=== PATIENT | male | born 1930 | race Caucasian/White ===

== ENCOUNTER 2017-05-14 18:12 | Emergency (ER) | payer MEDICARE ==
[~2017-05-14] VITALS: Ht 170.2 cm; Wt 75.0 kg
[~2017-05-14 18:12] MED LIST: AMOXICILLIN500 MG PO; ASPIRIN LOW DOS81 M2 PO; BENADRY2 EX; HYZAAR1 TA1 PO; METFORMIN850 MG PO
[2017-05-14] MEDS ORDERED: PRILOSEC OTC20 MG PO (18:43)
[2017-05-14] MEDS ORDERED: LOSARTAN/HCT1 TA2 PO (18:45)
[2017-05-14] MEDS ORDERED: AMLODIPINE5 MG PO (18:47)
[2017-05-14] MEDS ORDERED: GLIPIZIDE5 MG PO (18:48)
[2017-05-14] MEDS ORDERED: PRAVASTATIN SOD20 MG PO (18:48)
[2017-05-14 20:58] VITALS: BP 131/70
== END 2017-05-14 21:00 | disposition home or self-care (01) ==
LOC: ED 18:12
DX: I10 Essential (primary) hypertension (principal); E11.9 Type 2 diabetes mellitus without complications; Z85.820 Personal history of malignant melanoma of skin

== ENCOUNTER 2017-12-24 05:16 | Inpatient (IN) | payer MEDICARE ==
[~2017-12-24] VITALS: Ht 167.6 cm; Wt 74.4 kg
[~2017-12-24 05:16] MED LIST changes: +AMLODIPINE5 MG PO; +GLIPIZIDE5 MG PO; +LOSARTAN/HCT1 TA2 PO; +PRAVASTATIN SOD20 MG PO; +PRILOSEC OTC20 MG PO
--- NOTE | 2017-12-24 05:24 | NUR ---
BY W/C TO ROOM
--- NOTE | 2017-12-24 05:40 | NUR ---
PT IS ALERT/ORIENTED TO PERSON/TIME/PLACE. STEPHANY/GRASP EQUAL AND STRONG. STEVENS. RESP EASY REG. LUNGS CLEAR. HEART SOUNDS NORMAL. NO EDEMA. ABD SOFT/NON-TENDER. ONLY C/O SOME MILD DIZZINESS.
[2017-12-24] MEDS ORDERED: CO Q10200 MG PO (05:41)
[2017-12-24] MEDS ORDERED: METFORMIN500 M2 PO (05:42)
--- NOTE | 2017-12-24 06:05 | NUR ---
TO CT VIA STRETCHER
[2017-12-24 06:06] LABS: HEMATOCRIT 46.7 % (39.0-50.0); HEMOGLOBIN 15.2 g/dl (14.0-18.0); IMMATURE GRANULOCYTES 1.4 % (0.0-5.0); MEAN CORPUSCULAR HGB 28.8 pG CALC (26.0-32.0); MEAN CORPUSCULAR HGB CONC 32.5 g/L CALC (32.0-36.0); NEUT# 5.87 thou/uL (1.82-7.42); RED BLOOD COUNT 5.27 mill/uL (4.70-6.10); RED CELL DISTRI WIDTH 13.8 % (11.5-15.5)
[2017-12-24 06:08] LABS: MEAN CELL VOLUME 88.6 fL CALC (80.0-100.0)
[2017-12-24 06:12] LABS: ALKALINE PHOSPHATASE 56 u/l (38-126); ANION GAP 16 (6-22 (CALC)); BILIRUBIN, TOTAL 0.4 mg/dL (0.0-1.4); BUN 30 mg/dL (8-23); BUN/CREATININE RATIO 25 (12-20 (CALC)); CARBON DIOXIDE 28 mmol/l (22-30); CHLORIDE 99 mmol/l (95-108); CREATININE 1.2 mg/dL (0.7-1.3); GFR 58 ML/MIN (>=60 (CALC)); GFR FOR AFR.AMER. > 60 ML/MIN (>=60 (CALC)); POTASSIUM 4.6 mmol/l (3.5-5.1); SGOT/AST 19 u/l (19-48); SODIUM 138 mmol/l (137-146); TOTAL PROTEIN 6.8 g/dL (6.3-8.2)
[2017-12-24 06:15] LABS: ACT PARTIAL THROMBO TIME 27.3 SECONDS (20.0-32.5); PROTHROMBIN TIME 10.7 SECONDS (9.0-12.5)
[2017-12-24 06:39] LABS: MYOGLOBIN 41 ng/mL (0 - 121)
--- NOTE | 2017-12-24 06:56 | NUR ---
PT SUPINE ON STRETCHER. BP 179/78 HR 61. IV SITE HEALTHY. PT REPORTS FEELING IMPROVED. CALL LIGHT WITHIN REACH.
--- NOTE | 2017-12-24 08:06 | NUR ---
BP 120/61 HR 54 PT VOICES THAT IS WHAT VS ARE NORMALLY. NO C/O. ADVISED PT OF CONTINUED WAIT TIME. PT AWARE OF CURRENT POC. DENIES PAIN/DISCOMFORT. IV HEALTHY.
--- NOTE | 2017-12-24 08:18 | NUR ---
REPORT CALLED TO MEÑO, NURSE ON [facility]. ADVISED OF HX, ATTACHMENTS, AND RECENT EVENTS. PT IN STABLE CONDITION ON TELEMETRY.
--- NOTE | 2017-12-24 08:24 | NUR ---
PT TO [facility] VIA STRETCHER IN NO APPARENT DISTRESS. VSS. IV SITE HEALTHY.
--- NOTE | 2017-12-24 08:28 | NUR ---
PT ARRIVED TO FLOOR VIA STRETCHER ACCOMPANIED BY ER STAFF MEMBER IN STABLE CONDITION;PT AMBULATED TO STANDING SCALE AND BEDSIDE WITH A STEADY GAIT.WT AND VS OBTAINED,CURRENT BP 154/82 HR 52;PT A&O X3;PT ORIENTED TO ROOM AND CALL LIGHT SYSTEM;PT REPORTS DIZZINESS AND COTTON MOUTH SINCE YESTERDAY 12/23/17;NO PAIN NOTED,PAIN SCALE AND REPORTING EDUCATED;ASSESSMENT COMPLETED;RESPIRATIONS EVEN AND UNLABORED ON RA,CLEAR LUNG SOUNDS;ABDOMEN SOFT ON PALPATION AND ACTIVE IN ALL 4 QUADRANTS,LAST BM 12/24/17;STRONG PEDAL PULSES;#20G TO LAC FLUSHED AND PATENT,SITE APPEARS HEALTHY;TELE MONITOR IN PLACE AND SKIN INTACT; URINAL PROVIDED AND PT EDUCATED THAT WE NEED A URINE SAMPLE,VERBALIZES UNDERSTANDING;PO FLUIDS PROVIDED AND ENCOURAGED;PT DENIES ANY ADDITIONAL NEEDS AT THIS TIME;ALL SAFETY PRECAUTIONS REINFORCED AND PT EDUCATED TO CALL FOR ASSISTANCE IF NEEDED;FALL PRECAUTIONS IN PLACE WITH BED IN THE LOWEST POSITION;CALL LIGHT IN REACH;WILL CONTINUE TO MONITOR
[2017-12-24 08:55] VITALS: BP 154/82
[2017-12-24 09:08] LABS: CHOLESTEROL HDL RATIO 5.2 (<4.4 (CALC)); MAGNESIUM 1.7 mg/dL (1.6-2.3)
[2017-12-24 09:20] VITALS: BP 171/79
--- NOTE | 2017-12-24 09:35 | NUR ---
CRISTIAN ERNANDEZ,ANRP MADE AWARE OF PT LOWER HEART RATE 53.BP 171/79;ORDER TO CONTINUE ADMINISTRATION OF LOSARTAN 100MG AND NORVASC 5MG PO RECEIVED.
--- NOTE | 2017-12-24 11:00 | NUR ---
PT RESTING IN SEMI FOWLERS POSITION;PT DENIES ANY CURRENT PAIN OR DISCOMFORTS;RESPIRATIONS REMAIN EVEN AND UNLABORED ON RA;CURRENT ACCUCHECK 302, PT COVERED WITH NOVOLOG SLIDING SCALE PER ORDER;TELE MONITOR REMAINS IN PLACE;PO FLUIDS RE-ENCOURAGED;PT DENIES ANY ADDITIONAL NEEDS AT THIS TIME;FALL PRECAUTIONS IN PLACE WITH CALL LIGHT IN REACH;WILL CONTINUE TO MONITOR
[2017-12-24 11:15] VITALS: BP 164/67
[2017-12-24 14:35] LABS: URINE BILIRUBIN - DIPSTICK NEGATIVE (NEGATIVE); URINE BLOOD DIPSTICK NEGATIVE (NEGATIVE); URINE COLOR YELLOW; URINE GLUCOSE - DIPSTICK >=1000 mg/dL (NEGATIVE); URINE KETONE NEGATIVE (NEGATIVE); URINE LEUK ESTERASE NEGATIVE (NEGATIVE); URINE NITRITE - DIPSTICK NEGATIVE (Negative); URINE PROTEIN - DIPSTICK NEGATIVE (NEG-TRACE); URINE SPECIFIC GRAVITY >=1.030; URINE UROBILINOGEN - DIPSTICK 0.2 E.U./dL (0.2)
[2017-12-24 14:50] LABS: URINE CLARITY CLEAR
[2017-12-24 15:10] VITALS: BP 172/82
--- NOTE | 2017-12-24 16:08 | NUR ---
PT RESTING IN SEMI FOWLERS POSITION;RESPIRATIONS EVEN AND UNLABORED ON RA;PT DENIES ANY CURRENT PAIN OR DISCOMFORTS;BP 172/82 HR 58, PT MEDICATED WITH PRN APRESOLINE 10MG IVP BY ROULA BERMUDEZ;TELE MONITOR IN PLACE;IV SITE REMAINS PATENT TO LAC;PO FLUIDS REINFORCED;PT ENCOURAGED TO CALL FOR ASSISTANCE IF NEEDED;FALL PRECAUTIONS REMAIN IN PLACE WITH CALL LIGHT IN REACH;WILL CONTINUE TO MONITOR
[2017-12-24 16:45] VITALS: BP 178/80
--- NOTE | 2017-12-24 16:46 | NUR ---
BLOOD PRESSURE RE-CHECK 178/80 HR 63, PT ASYMPTOMATIC;CRISTIAN ERNANDEZ,ANRP MADE AWARE AND NEW ORDERS RECEIVED;WILL CONTINUE TO MONITOR
--- NOTE | 2017-12-24 17:08 | NUR ---
PT MEDICATED WITH CATAPRES 0.2MG PO FOR BP OF 178/80 HR 63.ACCUCHECK 178,PT COVERED WITH NOVOLOG SLIDING SCALE PRE ORDER;WILL MONITOR FOR EFFECTIVENESS
[2017-12-24 18:20] VITALS: BP 129/70
--- NOTE | 2017-12-24 18:20 | NUR ---
BLOOD PRESSURE RE-CHECK 129/70 HR 59
[2017-12-25] VITALS (7 sets, daily range): BP systolic 119–159; BP diastolic 69–75
[2017-12-25 05:46] LABS: ANION GAP 17 (6-22 (CALC)); BUN 22 mg/dL (8-23); BUN/CREATININE RATIO 21 (12-20 (CALC)); CARBON DIOXIDE 27 mmol/l (22-30); CHLORIDE 91 mmol/l (95-108); GFR > 60 ML/MIN (>=60 (CALC)); GFR FOR AFR.AMER. > 60 ML/MIN (>=60 (CALC)); MAGNESIUM 1.7 mg/dL (1.6-2.3); POTASSIUM 4.3 mmol/l (3.5-5.1)
[2017-12-25 05:47] LABS: SODIUM 131 mmol/l (137-146)
--- NOTE | 2017-12-25 07:05 | NUR ---
PT REPORT RECIEVED FROM ROULA NEVILLE. PT SLEEPING IN BED. NO S/S OF DISTRESS NOTED. CALL LIGHT IN REACH. WILL CONTINUE TO MONITOR
--- NOTE | 2017-12-25 07:58 | NUR ---
PT ASSESSMENT COMPLETE. PT A/O X3. SPEECH IS CLEAR. PT STATES HE HAD A HEADACHE EARLIER BUT IT HAS GONE AWAY. PT ALSO STATES THAT HE HAS VERY MINIMAL DIZZINESS. INSTRUCTED PT TO CALL FOR ASSISTANCE BEFORE GETTING OUT OF BED. PT STATES UNDERSTANDING. RESP EVEN AND UNLABORED. LUNG SOUNDS CLEAR. TELE IN PLACE. ABDOMEN ROUND,SOFT. BOWEL SOUNDS ACTIVE X4. STRONG RADIAL PULSES. #20 LAC SL. FUSHED AND PATENT. SITE APPEARS HEALTHY. WEAK PEDAL PULSES. SKIN INTACT. PT DENIES AND PAIN OR NEEDS AT THIS TIME. SAFETY PRECAUTIONS IN PLACE. CALL LIGHT IN REACH. WILL CONTINUE TO MONITOR.
--- NOTE | 2017-12-25 11:06 | NUR ---
DR. SARMIENTO AND AMMY FOSTER IN TO SEE PT
--- NOTE | 2017-12-25 12:25 | NUR ---
PT SITTING UPRIGHT IN BED EATING LUNCH. DENIES ANY PAIN OR NEEDS AT THIS TIME. CALL LIGHT IN REACH. WILL CONTINUE TO MONITOR.
--- NOTE | 2017-12-25 13:00 | NUR ---
PT TRANSFERRED TO [facility]TR[facility] IN STABLE CONDITION VIA WHEELCHAIR ACCOMPANIED BY VOLUNTEER IN STABLE CONDITION
--- NOTE | 2017-12-25 13:30 | NUR ---
PT TRANSPORTED BACK TO [facility] ACCOMPIANED BY VOLUNTEER.
--- NOTE | 2017-12-25 16:00 | NUR ---
PT SITTING UP IN BED WATCHING TELEVISION. DENIES ANY PAIN OR NEEDS AT THIS TIME. TELE IN PLACE. CALL LIGHT IN REACH. WILL CONTINUE TO MONITOR.
--- NOTE | 2017-12-25 20:35 | NUR ---
PATIENT A/O X3. ABLE TO MAKE NEEDS KNOWN. NO ACUTE DISTRESS NOTED. DENIES ANY PAIN OR DISCOMFORT AT THIS TIME. PATIENT LYING IN BED AWAKE WITH CALL LIGHT WITHIN REACH. BED IN LOWEST POSITION.
[2017-12-26] VITALS (8 sets, daily range): BP systolic 90–138; BP diastolic 57–93
--- NOTE | 2017-12-26 00:40 | NUR ---
PATIENT SLEEPING IN BED. NO ACUTE DISTRESS NOTED. CALL LIGHT WITHIN REACH BED IN LOWEST POSITION.
--- NOTE | 2017-12-26 04:15 | NUR ---
patient resting in bed ith eyes closed. no distress noted. call light within reach. be in lowest position.
[2017-12-26 05:23] LABS: ANION GAP 16 (6-22 (CALC)); BUN 26 mg/dL (8-23); BUN/CREATININE RATIO 24 (12-20 (CALC)); CARBON DIOXIDE 28 mmol/l (22-30); CHLORIDE 95 mmol/l (95-108); CREATININE 1.1 mg/dL (0.7-1.3); GFR > 60 ML/MIN (>=60 (CALC)); GFR FOR AFR.AMER. > 60 ML/MIN (>=60 (CALC)); POTASSIUM 4.3 mmol/l (3.5-5.1); SODIUM 135 mmol/l (137-146)
--- NOTE | 2017-12-26 07:15 | NUR ---
REPORT RECEIVED FROM JAMIN CALLESRN;PT RESTING AT BEDSIDE;PT DENIES ANY CURRENT PAIN OR NEEDS;RESPIRATIONS APPEAR EVEN AND UNLABORED ON RA;ALL SAFETY PRECAUTIONS REINFORCED AND POC DISCUSSED;PT RE-EDUCATED ON NPO DIET STATUS AND VERBALIZES UNDERSTANDING;FALL PRECAUTIONS IN PLACE WITH CALL LIGHT IN REACH;WILL CONTINUE TO MONITOR
--- NOTE | 2017-12-26 08:10 | NUR ---
PT OOB RESTING IN RECLINER;VS OBTAINED AND ASSESSMENT COMPLETED;PT DENIES ANY CURRENT PAIN OR DISCOMFORTS BUT DOES REPORT DIZZINESS AT TIMES;CURRENT BP 90/57 HR 82;TELE MONITOR IN PLACE;#20G TO LAC FLUSHED AND PATENT,SITE APPEARS HEALTHY;ACCUCHECK 192, SLIDING SCALE NOVOLOG PROVIDED PER ORDER;PT RE-EDUCATED ON NPO DIET STAUS AND VERBALIZES UNDERSTANDING;PT ENCOURAGED TO CALL FOR ASSISTANCE IF NEEDED;FALL PRECAUTIONS IN PLACE WITH CALL LIGHT IN REACH;WILL CONTINUE TO MONITOR
--- NOTE | 2017-12-26 10:10 | NUR ---
PT ARRIVED BACK TO FLOOR VIA WHEELCHAIR IN STABLE CONDITION.
--- NOTE | 2017-12-26 11:35 | NUR ---
PT RESTING IN BED;RESPIRATIONS EVEN AND UNLABORED ON RA;PT DENIES ANY CURRENT PAIN OR DISCOMFORTS;ORTHOSTATIC VS OBTAINED. LAYING 126/78 HR 74. SITTING 128/80 HR 78 AND STANDING 131/71 HR 97;PT STILL REPORTS DIZZINESS;TELE MONITOR IN PLACE;ACCUCHECK WAS 250 AND PT WAS COVERED ORDERED;PT DENIES ANY ADDITIONAL NEEDS AND IS INSTUCTED TO CALL FOR ASSISTANCE IF NEEDED;CALL LIGHT IN REACH;WILL CONTINUE TO MONITOR
--- NOTE | 2017-12-26 17:20 | NUR ---
PT OOB RESTING IN RECLINER;RESPIRATIONS EVEN AND UNLABORED ON RA;PT DENIES ANY CURRENT PAIN OR NEEDS;ACCUCHECK 131 AT THIS TIME; BP 138/93 HR 71;TELE MONITOR IN PLACE;ASSESSMENT UNCHANGED AT THIS TIME;INSTRUCTED PT TO CALL FOR ASSISTANCE IF NEEDED;FALL PRECAUTIONS IN PLACE WITH CALL LIGHT IN REACH;WILL CONTINUE TO MONITOR
--- NOTE | 2017-12-26 19:30 | NUR ---
PATIENT RESTING IN BED POSITIONED ON HER SIDE WITH EYES CLOSED. RESP ARE EVEN AND UNLABORED. TELE MONITOR IN PLACE. CALL LIGHT IN REACH. WILL CONT TO MONITOR. CALL LIGHT IN REACH. WILL CONT TO MONITOR.
--- NOTE | 2017-12-26 21:19 | NUR ---
PATIENT AWAKE ALERT AND ORIENTEDX3. NO COMPLAINTS AT THIS TIME. [id number] WITH 2UNITS OF NOVALOG SQ. HS SNACK PROVIDED. VOIDING QS YELLOW URINE. STATES THAT HE HAD BM TODAY. TELE MONITOR IN PLACE. REINFORCED SAFETY PRECAUTIONS. CALL LIGHT IN REACH. WILL CONT TO MONITOR.
[2017-12-27] VITALS: BP 133/69
--- NOTE | 2017-12-27 01:00 | NUR ---
APPEARS SLEEPING POSITIONED ON RIGHT SIDE WITH EYES CLOSED. RESP ARE EVEN AND UNLABORED. CALL LIGHT IN REACH. WILL CONT TO MONITOR.
[2017-12-27 04:00] VITALS: BP 131/70
--- NOTE | 2017-12-27 05:21 | NUR ---
APPEARS SLEEPING AT THIS TIME WITH EYES CLOSED. RESP ARE EVEN AND UNLABORED. CALL LIGHT IN REACH. WILL CONT TO MONITOR.
[2017-12-27 05:41] LABS: HEMATOCRIT 50.5 % (39.0-50.0); HEMOGLOBIN 16.9 g/dl (14.0-18.0); IMMATURE GRANULOCYTES 0.3 % (0.0-5.0); MEAN CELL VOLUME 86.9 fL CALC (80.0-100.0); MEAN CORPUSCULAR HGB 29.1 pG CALC (26.0-32.0); MEAN CORPUSCULAR HGB CONC 33.5 g/L CALC (32.0-36.0); NEUT# 7.27 thou/uL (1.82-7.42); RED BLOOD COUNT 5.81 mill/uL (4.70-6.10); RED CELL DISTRI WIDTH 14.1 % (11.5-15.5)
[2017-12-27 05:57] LABS: BILIRUBIN, TOTAL 0.7 mg/dL (0.0-1.4); CREATININE 1.4 mg/dL (0.7-1.3); POTASSIUM 4.8 mmol/l (3.5-5.1); TOTAL PROTEIN 6.6 g/dL (6.3-8.2)
--- NOTE | 2017-12-27 07:15 | NUR ---
REPORT RECEIVED FROM ROULA ORTEGA;PT RESTING IN HIGH FOWLERS POSITION TALKING ON THE PHONE;INTRODUCED SELF TO PT AND POC DISCUSSED;PT DENIES ANY CURRENT PAIN OR DISCOMFORTS;RESPIRATIONS EVEN AND UNLABORED ON RA;TELE MONITOR IN PLACE;PT INSTRUCTED TO CALL FOR ASSISTANCE IF NEEDED;FALL PRECAUTIONS NOTED WITH BED IN THE LOWEST POSITION AND CALL LIGHT IN REACH;WILL CONTINUE TO MONITOR
--- NOTE | 2017-12-27 08:00 | NUR ---
PT OOB RESTING IN RECLINER TALKING ON THE PHONE;VS OBTAINED AND ASSESSMENT COMPLETED;PT A&O X3;PT DENIES ANY CURRENT PAIN OR DISCOMFORTS;RESPIRATIONS EVEN AND UNLABORED ON RA,CLEAR LUNG SOUNDS NOTED;ABDOMEN SOFT ON PALPATION AND ACTIVE IN ALL 4 QUADRANTS;SKIN INTACT;CURRENT BP 113/56 HR 94;ACCUCHECK 206,PT COVERED WITH 2 UNITS OF NOVOLOG PER ORDER;ENCOURAGED INCREASED INTAKE OF ORAL FLUIDS AND PT VERBALIZES UNDERSTANDING;#20G TO LAC FLUSHED AND PATENT,SITE REMAINS HEALTHY;TELE MONITOR IN PLACE;PT DENIES ANY ADDITIONAL NEEDS AT THIS TIME AND IS ENCOURAGED TO CALL FOR ASSISTANCE IF NEEDED;FALL PRECAUTIONS IN PLACE;WILL CONTINUE TO MONITOR
[2017-12-27 08:03] VITALS: BP 113/56
[2017-12-27 10:50] VITALS: BP 131/79
--- NOTE | 2017-12-27 11:30 | NUR ---
PT OOB RESTING IN RECLINER;ALERT AND ORIENTED X3;RESPIRATIONS EVEN AND UNLABORED ON RA;PT DENIES ANY CURRENT PAIN OR NEEDS;ACCUCHECK 250 AND PT COVERED WITH 2UNITS OF SLIDING SCALE NOVOLOG;TELE MONITOR IN PLACE;PT ENCOURAGED TO CALL FOR ASSISTANCE IF NEEDED;CALL LIGHT IN REACH;WILL CONTINUE TO MONITOR
--- NOTE | 2017-12-27 12:40 | NUR ---
AT BEDSIDE DISCUSSING POC AND DISCHARGE PLAN
[2017-12-27 14:23] VITALS: BP 138/76
[2017-12-27] MEDS ORDERED: PRAVASTATIN SOD20 MG PO (15:16)
[2017-12-27] MEDS ORDERED: GLIPIZIDE5 MG PO (15:16)
[2017-12-27] MEDS ORDERED: APRESOLINE25 MG/TAB PO (15:17)
[2017-12-27] MEDS ORDERED: AMLODIPINE BESYL5 MG PO (15:17)
[2017-12-27] MEDS ORDERED: LOSARTAN POT50 MG PO (15:18)
[2017-12-27] MEDS ORDERED: ADLT ASA LOW81 MG PO (15:18)
[2017-12-27 16:08] VITALS: BP 123/77
--- NOTE | 2017-12-27 17:30 | NUR ---
PT OOB RESTING IN RECLINER;ACCUCHECK 154 AND PT COVERED WITH 1 UNIT OF NOVOLOG PER ORDER;RESPIRATIONS EVEN AND UNLABORED ON RA;PT DENIES ANY CURRENT PAIN OR NEEDS;TELE MONITOR IN PLACE;PT EDUCATED ON DISCHARGE PLAN AND VERBALIZES UNDERSTANDING;INSTRUCTED PT TO CALL FOR ASSISTANCE IF NEEDED;FALL PRECAUTIONS IN PLACE WITH CALL LIGHT IN REACH;WILL CONTINUE TO MONITOR
--- NOTE | 2017-12-27 18:12 | NUR ---
ALL DISCHARGE INSTRUCTIONS DISCUSSED AT THIS TIME;EDUCATION PROVIDED FOR DIABETES,ACCUCHECK, LOW SUGAR AND SALT DIET;IV SITE REMOVED WITH CATHETER INTACT;PT DENIES ANY ADDITIONAL NEEDS AT THIS TIME;WHEELCHAIR PROVIDED FOR DISCHARGE
--- NOTE | 2017-12-27 18:16 | NUR ---
Discharge instructions given. Patient verbalizes understanding of same. Discharged in stable condition via Wheelchair to Home with *Other. All belongings sent with pt.
== END 2017-12-27 18:17 | disposition home or self-care (01) | DRG 305 ==
LOC: ED 05:16 → ED-I 07:05 → ED 07:50 → MS2 07:51
PROVIDERS: Emergency Medicine; Nurse Practitioner Family; ADMIT Internal Medicine; ATTEND Internal Medicine Nephrology
DX: I16.0 Hypertensive urgency (principal); E87.1 Hypo-osmolality and hyponatremia; E11.65 Type 2 diabetes mellitus with hyperglycemia; I10 Essential (primary) hypertension; E78.5 Hyperlipidemia, unspecified; E86.0 Dehydration; Z79.84 Long term (current) use of oral hypoglycemic drugs; Z87.891 Personal history of nicotine dependence; Z91.11 Patient's noncompliance with dietary regimen

== ENCOUNTER 2019-01-13 04:34 | Emergency (ER) | payer MEDICARE ==
[~2019-01-13] VITALS: Ht 167.6 cm; Wt 74.5 kg
[~2019-01-13 04:34] MED LIST changes: +ADLT ASA LOW81 MG PO; +AMLODIPINE BESYL5 MG PO; +APRESOLINE25 MG/TAB PO; +CO Q10200 MG PO; +LOSARTAN POT50 MG PO; +METFORMIN500 M2 PO
[2019-01-13] MEDS ORDERED: HYZAAR1 TA2 PO (04:45)
[2019-01-13] MEDS ORDERED: GLIPIZIDE5 M2 PO (04:46)
[2019-01-13] MEDS ORDERED: ASPIRIN CHEWABL81 MG PO (04:46)
[2019-01-13 05:00] VITALS: BP 164/90
== END 2019-01-13 05:00 | disposition home or self-care (01) ==
LOC: ED 04:34
DX: T63.441A Toxic effect of venom of bees, accidental (unintentional), initial encounter (principal); E11.9 Type 2 diabetes mellitus without complications; Z79.84 Long term (current) use of oral hypoglycemic drugs

== ENCOUNTER 2019-04-02 | Emergency (ER) | payer MEDICARE ==
[~2019-04-02] MED LIST changes: +ASPIRIN CHEWABL81 MG PO; +GLIPIZIDE5 M2 PO; +HYZAAR1 TA2 PO
[2019-04-02] MEDS ORDERED: BACTRIM DS1 TAB PO (00:34)
== END 2019-04-02 00:49 | disposition home or self-care (01) ==
DX: S80.811A Abrasion, right lower leg, initial encounter (principal); L08.9 Local infection of the skin and subcutaneous tissue, unspecified; E11.9 Type 2 diabetes mellitus without complications; I10 Essential (primary) hypertension; W22.8XXA Striking against or struck by other objects, initial encounter; Z79.84 Long term (current) use of oral hypoglycemic drugs